=== PATIENT | female | born 1995 | race Caucasian/White ===

== ENCOUNTER 2018-12-23 03:15 | Emergency (ER) | payer BC ==
[2018-12-23] MEDS ORDERED: AMOXICILLIN/CLAVULANATE POT 875/125 MG TAB PO ONE (03:44)
--- NOTE | 2018-12-23 03:44 | EDPHY ---
H & P Time Seen by Provider: 12/23/18 03:22 HPI/ROS: Chief complaint: Right lower lip laceration due to dog bite HPI: This is a 23-year-old female who admits to rough housing with the PET of her boyfriend. Evidently she was down on all fours on the kitchen floor wrestling with the dog. Unfortunately the dog nipped her right lip thereby causing a laceration to the right lower lip. This just happened an hour ago, at home. Reports there is no numbness or loss of sensation. Contamination: Yes, dog bite FB possibility no Dog: Friends, available, healthy, UTD wrt Rabies vaccination. Circumstances: rough play with the dog, she on the floor with the dog. The dog had been feeling well. The dog is up-to-date with respect to rabies vaccination Last Td or TDAP: less than 5 years ROS Neuro: No numbness or tingling or loss of sensation Smoking Status: Current every day smoker Physical Exam: Gen: Well-developed. Well-nourished. Strong odor of alcohol. Nontoxic. Afebrile. Very talkative however redirectable almost at all times Face: There is a 4 cm, curved laceration that is full thickness to the right lower lip, that is paired, with both lacerations involving the mara border. This involves the skin, goes through the lip to the inner aspect of the buccal mucosa, as well as the muscularis at the base.. Function: With signs of pulling when she attempts to smile NV Status: Intact CMS: Intact Constitutional: Initial Vital Signs Temperature (C) 36.6 C 12/23/18 03:18 Heart Rate 78 12/23/18 03:18 Respiratory Rate 18 12/23/18 03:18 Blood Pressure 142/66 H 12/23/18 03:18 O2 Sat (%) 97 12/23/18 03:18 O2 Delivery Mode Room Air Allergies/Adverse Reactions: No Known Allergies Allergy (Unverified 12/23/18 03:18) Home Medications: Medication Instructions Recorded Amoxicillin/Clavulanate Pot 875 mg PO BID #10 tab 12/23/18 [Augmentin 875 MG TAB (*)] Medical Decision Making Procedures: Procedure: Laceration repair. Options presented to patient, including referral to plastic surgeon in the morning for primary closure. However, she requested repair here. After skin prep with chloraseptic the wound was anesthetized with infraorbital nerve block with lidocaine 1 % with epinephrine, which was reinforced on one occasion as well as additional local infiltration at the commissure of the mouth. The wound was Cleansed with irrigation by Tech The length of the wound was 4 cm in total with two parallel lacerations with the more medial one being stellate. Inspection and exploration of the wound, with gloved finger and forceps ,prior to closure revealed no evidence of foreign body and no involvement of deeper structures, except for that of the muscularis Closure was obtained using layered closure with 4 0 Vicryl followed by 6 0 Prolene. Both wounds did involve the mara border, thus localization 6-0 prolene stitiches were placed there. Then two muscularis sutures at the base of the wound. The skin was closed with 6-0 nylon with a 4-0 vicryl subdermal suture. Finally, the lip proper was closed with interrupted 6-0 prolene, approximately 17 in total. At the end of the procedure, wound edges were well approximated and hemostasis was achieved. Patient tolerated procedure well. ED Course/Re-evaluation: Though chatty, she was directable at all times and when it came time to the actual repair, she remained calm and quiet. I offered her the consideration of seeing a Plastic Surgeon in the am for primary closure, due to the complex nature of the wound perhaps needing scar revision. However, she wants it done now. Differential Diagnosis: Diagnostic considerations include, but are not limited to, the following, 5this represents a partial list of diagnoses considered These considerations are based on history, physical exam, past history, reassessment and diagnostic testing: Dog Bite, Dog laceration of the lower lip, no indication for Rabies Post Exposure Prophylaxis. - Data Points Medications Given: Discontinued Medications Amoxicillin/Clavulanate Potassium (Augmentin 875mg) 875 mg PO EDNOW ONE PRN Reason: Protocol Stop: 12/23/18 03:45 Last Admin: 12/23/18 03:50 Dose: 875 mg Departure - Departure Disposition: Home, Routine, Self-Care Clinical Impression: Laceration Dog bite of vermilion border of lower lip Qualifiers: Encounter type: initial encounter Qualified Code(s): S01.551A - Open bite of lip, initial encounter Condition: Good Instructions: Animal Bite (ED), Laceration (ED) Additional Instructions: Clean wound 3 times a day with Hydrogen Peroide, followed by a small dab of BACITRCIN. AGUMENTIN twice a day to decrease chance of infection. Return for wound check in 2 days time on December 26, preferably at 6 am if you can make it. In the meantime, Tylenol should be sufficient for the pain. If it is not then return immediately for reassessment of the wound for infection. Sutures out in 5 days. No sun exposure for 3 months. Even then, apply sun screen as well as lip balm with a high SPF, such as BANANA BOAT, whcih is 45 SPF. Apply 3+ times a day. Referrals: Patient,NotPresent [Primary Care Provider] - As per Instructions Prescriptions: Amoxicillin/Clavulanate Pot [Augmentin 875 MG TAB (*)] 875 mg PO BID #10 tab
[2018-12-23 05:48] VITALS: BP 118/62
== END 2018-12-23 05:46 | disposition home or self-care (01) ==
LOC: CED 03:15
PROC: 0CQ1XZZ Repair Lower Lip, External Approach (ICD-10-PCS; principal; 2018-12-23)
DX: S01.511A Laceration without foreign body of lip, initial encounter (principal); W54.0XXA Bitten by dog, initial encounter; Y92.000 Kitchen of unspecified non-institutional (private) residence as the place of occurrence of the external cause; Y93.83 Activity, rough housing and horseplay
CPT/HCPCS: 99283-ER